=== PATIENT | female | born 1995 | race American Indian/Alaskan Native ===

== ENCOUNTER 2018-03-30 16:58 | Emergency (ER) | payer SELFPAY ==
[2018-03-30 17:19] VITALS: BP 135/69
--- NOTE | 2018-03-30 20:46 | Emergency Department Report ---
ED General Adult HPI - General Chief complaint: Anxiety Stated complaint: CHEST, BACK AND STOMACH PAIN. SEVERE FATIGUE Time Seen by Provider: 03/30/18 20:37 Source: patient Mode of arrival: Ambulatory Limitations: No Limitations - History of Present Illness Initial comments: Concepcion is a 22-year-old female who is "stressed out". She has had chest tightness and shortness of breath intermittently over the last several days. She feels anxious. She denies depression. Denies suicidal ideation. She feels well now. Mostly it occurs when she is in stressful situation or driving a car. Denies any domestic violence. Denies any recreational drug use. ED Review of Systems ROS: Stated complaint: CHEST, BACK AND STOMACH PAIN. SEVERE FATIGUE Other details as noted in HPI Comment: All other systems reviewed and negative Constitutional: denies: fever, malaise Respiratory: denies: cough Cardiovascular: chest pain, palpitations ED Past Medical Hx - Past Medical History Previous Medical History?: No - Surgical History Past Surgical History?: No - Social History Smoking Status: Never Smoker Substance Use Type: None ED Physical Exam - General Limitations: No Limitations General appearance: alert, in no apparent distress - Head Head exam: Present: atraumatic, normocephalic - Eye Eye exam: Present: normal appearance - ENT ENT exam: Present: mucous membranes moist - Neck Neck exam: Present: normal inspection. Absent: tenderness, meningismus - Respiratory Respiratory exam: Present: normal lung sounds bilaterally. Absent: respiratory distress, wheezes, rales, rhonchi - Cardiovascular Cardiovascular Exam: Present: regular rate, normal rhythm, normal heart sounds. Absent: systolic murmur, diastolic murmur, rubs, gallop - GI/Abdominal GI/Abdominal exam: Present: soft, normal bowel sounds. Absent: distended, tenderness, guarding, rebound - Extremities Exam Extremities exam: Present: normal inspection - Back Exam Back exam: Present: normal inspection - Neurological Exam Neurological exam: Present: alert, oriented X3 - Psychiatric Psychiatric exam: Present: normal affect, normal mood - Skin Skin exam: Present: warm, dry, intact, normal color. Absent: rash ED Course Vital Signs 03/30/18 17:14 Temperature 98.5 F Pulse Rate 99 H Respiratory 16 Rate Blood Pressure 135/69 O2 Sat by Pulse 98 Oximetry ED Medical Decision Making - Medical Decision Making Clinical impression: Anxiety due to social stressors no indication of PE or arrhythmia. Patient given reassurance. Critical care attestation.: If time is entered above; I have spent that time in minutes in the direct care of this critically ill patient, excluding procedure time. ED Disposition Clinical Impression: Anxiety, Stress at home Disposition: DC-01 TO HOME OR SELFCARE Is pt being admited?: No Does the pt Need Aspirin: No Condition: Stable Instructions: Anxiety (ED) Referrals: PRIMARY CARE, [Primary Care Provider] - 3-5 Days Time of Disposition: 20:45
== END 2018-03-30 20:50 | disposition home or self-care (01) ==
LOC: ED 16:58
DX: F41.9 Anxiety disorder, unspecified (principal)
CPT/HCPCS: 99282

== ENCOUNTER 2018-06-23 02:16 | Emergency (ER) | payer SELFPAY ==
[2018-06-23 02:26] VITALS: BP 126/68
[2018-06-23 03:39] LABS: Basophils % (Auto) 0.4 % (0.0-1.8); Eosinophils % (Auto) 0.5 % (0.0-4.3); Hematocrit 36.3 % (30.3-42.9); Hemoglobin 12.2 gm/dl (10.1-14.3); Lymphocytes # (Auto) 2.2 K/mm3 (1.2-5.4); Lymphocytes % (Auto) 26.6 % (13.4-35.0); Mean Corpuscular HGB Conc 34 % (30-34); Mean Corpuscular Hemoglobin 28 pg (28-32); Mean Corpuscular Volume 81 fl (79-97); Monocytes # (Auto) 0.4 K/mm3 (0.0-0.8); Monocytes % (Auto) 4.9 % (0.0-7.3); Platelet Count 331 K/mm3 (140-440); Red Blood Count 4.46 M/mm3 (3.65-5.03); Red Cell Distribution Width 17.8 % (13.2-15.2)
[2018-06-23 03:56] LABS: Alanine Aminotransferase 10 units/L (7-56); Albumin 4.4 g/dL (3.9-5); BUN/Creatinine Ratio 17; Blood Urea Nitrogen 10 mg/dL (7-17); Calcium 9.2 mg/dL (8.4-10.2); Hemolysis Index 4
[2018-06-23 04:47] LABS: Bacteria,Urine 1+ /HPF (Negative); Bilirubin,Urine NEG (Negative); Blood,Urine SM (Negative); Color,Urine Yellow (Yellow); Mucus,Urine 2+ /HPF; Protein,Urine <15 mg/dL mg/dL (Negative)
== END 2018-06-23 02:30 | disposition left against medical advice (07) ==
LOC: ED 02:16
DX: R10.9 Unspecified abdominal pain (principal); N93.9 Abnormal uterine and vaginal bleeding, unspecified; Z53.21 Procedure and treatment not carried out due to patient leaving prior to being seen by health care provider
CPT/HCPCS: 36415; 80053; 81001; 84702; 85025

== ENCOUNTER 2022-06-28 10:26 | Emergency (ER) | payer SELFPAY ==
--- NOTE | 2022-06-28 11:13 | Event Note ---
ED Screening Note Date of service: 06/28/22 Time: 11:09 ED Screening Note: This initial assessment/diagnostic orders/clinical plan/treatment(s) is/are subject to change based on patients health status, clinical progression and re- assessment by fellow clinical providers in the ED. Further treatment and workup at subsequent clinical providers discretion. Patient/guardian urged not to elope from the ED as their condition may be serious if not clinically assessed and managed. Initial orders include: My Active Orders 06/28/22 11:07 Basic Metabolic Panel Stat Complete Blood Count Auto Diff Stat HCG Qualitative, Serum Stat Urinalysis Complete Stat Patient complains of mestrual - like cramps since her last meses 06/06. Post Oct 2021 and breast feeding until May so menses irregular since. Told she had 2 small fibroids in prei perieod. Exam: Abdomen soft with suprapubic tenderness.
[2022-06-28 11:54] LABS: Basophils % (Auto) 0.7 % (0.0-1.8); Eosinophils % (Auto) 0.2 % (0.0-4.3); Hematocrit 32.1 % (30.3-42.9); Hemoglobin 10.2 gm/dl (10.1-14.3); Lymphocytes # (Auto) 1.7 K/mm3 (1.2-5.4); Mean Corpuscular HGB Conc 32 % (30-34); Monocytes # (Auto) 0.4 K/mm3 (0.0-0.8); Monocytes % (Auto) 5.5 % (0.0-7.3); Platelet Count 362 K/mm3 (140-440); Red Blood Count 4.96 M/mm3 (3.65-5.03)
[2022-06-28 12:00] LABS: Mean Corpuscular Volume 65 fl (79-97); Red Cell Distribution Width 21.6 % (13.2-15.2)
[2022-06-28 12:12] LABS: Blood Urea Nitrogen 9 mg/dL (7-17); Calcium 9.2 mg/dL (8.4-10.2); Hemolysis Index 1
[2022-06-28 12:15] LABS: BUN/Creatinine Ratio 13
[2022-06-28 13:01] LABS: Bilirubin,Urine NEG (Negative); Blood,Urine SM (Negative); Color,Urine Amber (Yellow); Protein,Urine <15 mg/dL mg/dL (Negative)
[2022-06-28 13:29] LABS: Bacteria,Urine 4+ /HPF (Negative); Mucus,Urine 3+ /HPF; Urobilinogen,Urine < 2 mg/dL (<2.0)
--- NOTE | 2022-06-28 14:54 | Ultrasound Report ---
ULTRASOUND PELVIS INDICATION / CLINICAL INFORMATION: pelvic pain. TECHNIQUE: Transabdominal. Duplex Color Doppler used: Yes. COMPARISON: None available FINDINGS: UTERUS: 9.8 x 4.5 x 4.9 cm. Endometrial stripe measures 11 mm. RIGHT ADNEXA: Right ovary not visualized or evaluated. LEFT ADNEXA: 18 mm hypoechoic focus most likely on the basis of a mildly complicated cyst. Normal col or Doppler blood flow. URINARY BLADDER: No significant abnormality. FREE FLUID: None. ADDITIONAL FINDINGS: None. IMPRESSION: 1. No acute uterine or left ovarian abnormality demonstrated by ultrasound, a small left ovarian cyst statistically physiologic. 2. Right ovary not visualized or evaluated. 3. Given limitations of the study repeat evaluation with transvaginal technique would be suggested sh ould be considered as clinically indicated. Signer Name: Myrtle Rutherford MD Signed: 06/28/2022 2:49 PM Workstation Name: [email or web address]
--- NOTE | 2022-06-28 15:00 | Ultrasound Report ---
ULTRASOUND PELVIS INDICATION / CLINICAL INFORMATION: pelvic pain. TECHNIQUE: Transvaginal. Duplex Color Doppler used: Yes. COMPARISON: Pelvic ultrasound earlier today. FINDINGS: UTERUS: 9.6 x 4.5 x 4.9 cm. Endometrial stripe measures 6 mm. RIGHT ADNEXA: No significant ovarian cyst or mass. Normal color Doppler blood flow. LEFT ADNEXA: Left ovary not well visualized or evaluated by transvaginal technique, although better d emonstrated on transabdominal study earlier today. Normal color Doppler blood flow. URINARY BLADDER: No significant abnormality. FREE FLUID: None. ADDITIONAL FINDINGS: Tiny cyst at the cervix is likely nabothian in nature. IMPRESSION: 1. No acute pelvic sonographic abnormality demonstrated. Left ovary not well visualized or evaluated by transvaginal technique, although better visualized on transabdominal study earlier today. Please s ee that report for additional details. Signer Name: Myrtle Rutherford MD Signed: 06/28/2022 2:56 PM Workstation Name: [email or web address]
[2022-06-28] MEDS ORDERED: HYDROcodone/ACETAMINOPHEN 5-325 MG TAB PO ONE (15:26)
--- NOTE | 2022-06-28 15:26 | Emergency Department Report ---
ED Abdominal Pain HPI - General Chief Complaint: Abdominal Pain Stated Complaint: ABD PAIN Time Seen by Provider: 06/28/22 11:00 Source: patient Mode of arrival: Ambulatory Limitations: No Limitations - History of Present Illness Initial Comments: 27-year-old female with no significant past medical history reports to the ER with 1 week of lower abdominal pelvic pain with no nausea no vomiting no diarrhea. Pain is 6 out of 10. Patient denies any vaginal discharge no vaginal bleeding. No other acute signs or symptoms reported Severity scale (0 -10): 6 - Related Data Previous Rx's Medication Instructions Recorded Last Taken Type Acetaminophen/Codeine [Tylenol 1 tab PO Q6H PRN 2 Days #8 tab 06/28/22 Unknown Rx /Codeine # 3 tab] Sulfamethoxazole/Trimethoprim 1 each PO BID 7 Days #14 tab 06/28/22 Unknown Rx [Bactrim DS TAB] Allergies Allergy/AdvReac Type Severity Reaction Status Date / Time No Known Allergies Allergy Unverified 06/23/18 02:26 ED Review of Systems ROS: Stated complaint: ABD PAIN Other details as noted in HPI Comment: All other systems reviewed and negative Gastrointestinal: abdominal pain (Lower abdominal suprapubic area). denies: nausea, vomiting, diarrhea ED Past Medical Hx - Past Medical History Previous Medical History?: Yes Additional medical history: Uterine fibroids - Surgical History Past Surgical History?: Yes Additional Surgical History: c sec - Social History Smoking Status: Former Smoker Substance Use Type: None - Medications Home Medications: Home Medications Medication Instructions Recorded Confirmed Last Taken Type Acetaminophen/Codeine [Tylenol 1 tab PO Q6H PRN 2 Days #8 tab 06/28/22 Unknown Rx /Codeine # 3 tab] Sulfamethoxazole/Trimethoprim 1 each PO BID 7 Days #14 tab 06/28/22 Unknown Rx [Bactrim DS TAB] ED Physical Exam - General Limitations: No Limitations General appearance: alert, in no apparent distress - Head Head exam: Present: atraumatic, normocephalic - Eye Eye exam: Present: normal appearance - ENT ENT exam: Present: mucous membranes moist - Neck Neck exam: Present: normal inspection - Respiratory Respiratory exam: Present: normal lung sounds bilaterally. Absent: respiratory distress - Cardiovascular Cardiovascular Exam: Present: regular rate, normal rhythm. Absent: systolic murmur, diastolic murmur, rubs, gallop - GI/Abdominal GI/Abdominal exam: Present: soft, tenderness (Right suprapubic area), normal bowel sounds. Absent: distended, guarding, rebound, rigid - Extremities Exam Extremities exam: Present: normal inspection - Back Exam Back exam: Present: normal inspection - Neurological Exam Neurological exam: Present: alert, oriented X3 - Psychiatric Psychiatric exam: Present: normal affect, normal mood - Skin Skin exam: Present: warm, dry, intact, normal color. Absent: rash ED Course Vital Signs 06/28/22 06/28/22 10:59 16:13 Temperature 98.4 F 98.1 F Pulse Rate 63 78 Respiratory 20 18 Rate Blood Pressure 136/87 134/96 [Right] O2 Sat by Pulse 99 100 Oximetry ED Medical Decision Making - Lab Data Result diagrams: 06/28/22 11:28 06/28/22 11:28 - Radiology Data [facility] [address] [place] [address] Ultrasound Report Signed Patient: SORAYA MAX MR#: [id number] : 1995 Acct:[id number] Age/Sex: 27 / F ADM Date: 06/28/22 Loc: ED Attending Dr: Ordering Physician: CHA GUILLORY NP Date of Service: 06/28/22 Procedure(s): US pelvic complete Accession Number(s): [id number] cc: CHA GUILLORY NP ULTRASOUND PELVIS INDICATION / CLINICAL INFORMATION: pelvic pain. TECHNIQUE: Transabdominal. Duplex Color Doppler used: Yes. COMPARISON: None available FINDINGS: UTERUS: 9.8 x 4.5 x 4.9 cm. Endometrial stripe measures 11 mm. RIGHT ADNEXA: Right ovary not visualized or evaluated. LEFT ADNEXA: 18 mm hypoechoic focus most likely on the basis of a mildly complicated cyst. Normal color Doppler blood flow. URINARY BLADDER: No significant abnormality. FREE FLUID: None. ADDITIONAL FINDINGS: None. IMPRESSION: 1. No acute uterine or left ovarian abnormality demonstrated by ultrasound, a small left ovarian cyst statistically physiologic. 2. Right ovary not visualized or evaluated. 3. Given limitations of the study repeat evaluation with transvaginal technique would be suggested should be considered as clinically indicated. Signer Name: Myrtle Rutherford MD Signed: 06/28/2022 2:49 PM Workstation Name: [email or web address] Transcribed By: WP Dictated By: Tim RUTHERFORD Electronically Authenticated By: Tim RUTHERFORD Signed Date/Time: 06/28/22 1449 DD/ 143 TD/TT: [facility] [address] [place] [address] Ultrasound Report Signed Patient: SORAYA MAX MR#: [id number] : 1995 Acct:[id number] Age/Sex: 27 / F ADM Date: 06/28/22 Loc: ED Attending Dr: Ordering Physician: CHA GUILLORY NP Date of Service: 06/28/22 Procedure(s): US transvaginal Accession Number(s): [id number] cc: CHA GUILLORY NP ULTRASOUND PELVIS INDICATION / CLINICAL INFORMATION: pelvic pain. TECHNIQUE: Transvaginal. Duplex Color Doppler used: Yes. COMPARISON: Pelvic ultrasound earlier today. FINDINGS: UTERUS: 9.6 x 4.5 x 4.9 cm. Endometrial stripe measures 6 mm. RIGHT ADNEXA: No significant ovarian cyst or mass. Normal color Doppler blood flow. LEFT ADNEXA: Left ovary not well visualized or evaluated by transvaginal technique, although better demonstrated on transabdominal study earlier today. Normal color Doppler blood flow. URINARY BLADDER: No significant abnormality. FREE FLUID: None. ADDITIONAL FINDINGS: Tiny cyst at the cervix is likely nabothian in nature. IMPRESSION: 1. No acute pelvic sonographic abnormality demonstrated. Left ovary not well visualized or evaluated by transvaginal technique, although better visualized on transabdominal study earlier tod ay. Please see that report for additional details. Signer Name: Myrtle Rutherford MD Signed: 06/28/2022 2:56 PM Workstation Name: [id number] Transcribed By: Dictated By: Tim RUTHERFORD Electronically Authenticated By: Tim RUTHERFORD Signed Date/Time: 06/28/22 1456 DD/ 145 TD/TT: - Medical Decision Making 27-year-old female with no significant past medical history reports to the ER with 1 week of lower abdominal pelvic pain with no nausea no vomiting no diarrhea. Pain is 6 out of 10. Patient denies any vaginal discharge no vaginal bleeding. No other acute signs or symptoms reported. On physical exam left lower suprapubic tenderness noted no other acute abdominal signs noted. CBC CMP unremarkable. UA positive for nitrates and leukocytes Left ultrasound reveals left ovary cyst. See details of ultrasound for further explanation. Patient informed of her results. Patient informed to follow her [employer]. Patient informed symptoms are to get worse to report back to ER. Patient discharged with oral pain medicine for pain control. As well as patient to receive Bactrim DS for urinary tract infection. Patient agrees with plan of care and verbalized understanding. Vital Signs 06/28/22 10:59 Temperature 98.4 F Pulse Rate 63 Respiratory 20 Rate Blood Pressure 136/87 [Right] O2 Sat by Pulse 99 Oximetry Lab Results 06/28/22 06/28/22 06/28/22 Range/Units 11:28 11:28 11:28 WBC 7.5 (4.5-11.0) K/mm3 RBC 4.96 (3.65-5.03) M/mm3 Hgb 10.2 (10.1-14.3) gm/dl Hct 32.1 (30.3-42.9) % MCV 65 L (79-97) fl MCH 21 L (28-32) pg MCHC 32 (30-34) % RDW 21.6 H (13.2-15.2) % Plt Count 362 (140-440) K/mm3 Lymph % (Auto) 22.0 (13.4-35.0) % [place] % (Auto) 5.5 (0.0-7.3) % Eos % (Auto) 0.2 (0.0-4.3) % Baso % (Auto) 0.7 (0.0-1.8) % Lymph # (Auto) 1.7 (1.2-5.4) K/mm3 [place] # (Auto) 0.4 (0.0-0.8) K/mm3 Eos # (Auto) 0.0 (0.0-0.4) K/mm3 Baso # (Auto) 0.0 (0.0-0.1) K/mm3 Seg Neutrophils % 71.6 H (40.0-70.0) % Seg Neutrophils # 5.4 (1.8-7.7) K/mm3 Sodium 141 (137-145) mmol/L Potassium 3.9 (3.6-5.0) mmol/L Chloride 103.5 (98-107) mmol/L Carbon Dioxide 25 (22-30) mmol/L Anion Gap 16 mmol/L BUN 9 (7-17) mg/dL Creatinine 0.7 (0.6-1.2) mg/dL Estimated GFR > 60 ml/min BUN/Creatinine Ratio 13 % Glucose 87 (65-100) mg/dL Calcium 9.2 (8.4-10.2) mg/dL HCG, Qual Negative (Negative) Urine Color (Yellow) Urine Turbidity (Clear) Urine pH (5.0-7.0) Ur Specific [place] (1.003-1.030) Urine Protein (Negative) mg/dL Urine Glucose (UA) (Negative) mg/dL Urine Ketones (Negative) mg/dL Urine Blood (Negative) Urine Nitrite (Negative) Urine Bilirubin (Negative) Urine Urobilinogen (<2.0) mg/dL Ur Leukocyte Esterase (Negative) Urine WBC (Auto) (0.0-6.0) /HPF Urine RBC (Auto) (0.0-6.0) /HPF U Epithel Cells (Auto) (0-13.0) /HPF Urine Bacteria (Auto) (Negative) /HPF Urine Mucus /HPF 06/28/22 Range/Units 12:13 WBC (4.5-11.0) K/mm3 RBC (3.65-5.03) M/mm3 Hgb (10.1-14.3) gm/dl Hct (30.3-42.9) % MCV (79-97) fl MCH (28-32) pg MCHC (30-34) % RDW (13.2-15.2) % Plt Count (140-440) K/mm3 Lymph % (Auto) (13.4-35.0) % [place] % (Auto) (0.0-7.3) % Eos % (Auto) (0.0-4.3) % Baso % (Auto) (0.0-1.8) % Lymph # (Auto) (1.2-5.4) K/mm3 [place] # (Auto) (0.0-0.8) K/mm3 Eos # (Auto) (0.0-0.4) K/mm3 Baso # (Auto) (0.0-0.1) K/mm3 Seg Neutrophils % (40.0-70.0) % Seg Neutrophils # (1.8-7.7) K/mm3 Sodium (137-145) mmol/L Potassium (3.6-5.0) mmol/L Chloride (98-107) mmol/L Carbon Dioxide (22-30) mmol/L Anion Gap mmol/L BUN (7-17) mg/dL Creatinine (0.6-1.2) mg/dL Estimated GFR ml/min BUN/Creatinine Ratio % Glucose (65-100) mg/dL Calcium (8.4-10.2) mg/dL HCG, Qual (Negative) Urine Color [place] (Yellow) Urine Turbidity Slightly-cloudy (Clear) Urine pH 5.0 (5.0-7.0) Ur Specific [place] 1.021 (1.003-1.030) Urine Protein <15 mg/dl (Negative) mg/dL Urine Glucose (UA) Neg (Negative) mg/dL Urine Ketones Neg (Negative) mg/dL Urine Blood Sm (Negative) Urine Nitrite Pos (Negative) Urine Bilirubin Neg (Negative) Urine Urobilinogen < 2 (<2.0) mg/dL Ur Leukocyte Esterase Sm (Negative) Urine WBC (Auto) 51.0 H (0.0-6.0) /HPF Urine RBC (Auto) 8.0 (0.0-6.0) /HPF U Epithel Cells (Auto) 8.0 (0-13.0) /HPF Urine Bacteria (Auto) 4+ (Negative) /HPF Urine Mucus 3+ /HPF Critical care attestation.: If time is entered above; I have spent that time in minutes in the direct care of this critically ill patient, excluding procedure time. ED Disposition Clinical Impression: Left ovarian cyst, UTI (urinary tract infection) Disposition: 01 HOME / SELF CARE / HOMELESS Is pt being admited?: No Condition: Stable Instructions: Urinary Tract Infection, Adult, [id number], Ovarian Cyst, [id number], Abdominal Pain (ED) Prescriptions: Sulfamethoxazole/Trimethoprim [Bactrim DS TAB] 1 each PO BID 7 Days #14 tab Acetaminophen/Codeine [Tylenol /Codeine # 3 tab] 1 tab PO Q6H PRN 2 Days #8 tab PRN Reason: Pain , Severe (7-10) Referrals: JOSE BENJAMIN MD [Primary Care Provider] - 3-5 Days
[2022-06-28 16:14] VITALS: BP 134/96
== END 2022-06-28 15:48 | disposition home or self-care (01) ==
LOC: ED 10:26
DX: N83.202 Unspecified ovarian cyst, left side (principal); N39.0 Urinary tract infection, site not specified; Z87.891 Personal history of nicotine dependence; Z79.899 Other long term (current) drug therapy
CPT/HCPCS: 36415; 76830; 76856; 80048; 81001; 84703; 85025; 87086; 99284